=== PATIENT | male | born 1990 | race Caucasian/White ===

== ENCOUNTER 2023-09-01 20:26 | Inpatient (IN) | payer OTHER, SELFPAY ==
[2023-09-01 20:27] VITALS: BP 148/83; PULSE 88; RESP 16; TEMP 37; O2SAT 97; BMI 27.2
[2023-09-01 21:15] LABS: Basophils % 0.3 %; Eosinophils # 0.1 10^3/uL (0.0-0.8); Eosinophils % 0.8 %; Hematocrit 44.1 % (37-53); Lymphocytes # 2.2 10^3/uL (0.8-4.8); Lymphocytes % 20.8 %; Mean Corpuscular HGB Conc 33.6 g/dL (30-55); Mean Corpuscular Volume 86.3 fl (82-101); Mean Platelet Volume 9.9 fL (7.4-10.4); Monocytes # 0.6 10^3/uL (0.2-0.9); Monocytes % 5.4 %; Neutrophils # 7.74 10^3/uL (1.8-7.7); Neutrophils % 72.2 %; Nucleated Red Blood Cells % 0 %; Platelet Count 223 10^3/cmm (157-399); Red Blood Count 5.11 10^6/uL (3.85-5.65); Red Cell Distribution Width 12.3 % (12.1-15.1); White Blood Count 10.72 10^3/uL (3.29-11.43)
[2023-09-01 21:19] VITALS: RESP 14
[2023-09-01 21:34] LABS: Add Urine Microscopic? YES
[2023-09-01 21:36] LABS: Amorphous Sediment Urine 1+ /hpf; Bacteria Urine 2+ /hpf; Bilirubin Urine Neg (Negative); Blood Urine Neg (Negative); Glucose Urine UA Norm (Normal); Ketones Urine Negative (Negative); Leukocyte Esterase Urine Trace (Negative); Mucus Urine TRACE /hpf; Nitrate Urine Negative (Negative); Protein Urine Neg (Negative); RBC Urine 0-4 /hpf (0-2); Squamous Epithelial Cell Urine 0-4 /hpf (0-5); Urine Appearance Hazy (CLEAR); Urine Color Yellow (Yellow); Urobilinogen Urine 1 mg/dL (Negative); WBC Urine 0-4 /hpf (0-5); pH Urine 7 (5-7)
[2023-09-01 21:37] LABS: Coarse Granular Casts Urine 0-4 /lpf
[2023-09-01 21:38] LABS: Alanine Aminotransferase 19 U/L (0-41); Albumin Level 3.9 g/dL (3.5-5.2); Alkaline Phosphatase 129 U/L (40-130); Anion Gap 12.7 (5-19); Aspartate Amino Transferase 19 U/L (0-40); Blood Urea Nitrogen 5 mg/dL (6-20); Calcium 8.6 mg/dL (8.5-10.5); Carbon Dioxide 30 mmol/L (22-29); Chloride 104 mmol/L (98-107); Creatinine Clr Calc Pharmacy 149.1025; Globulin 2.6 g/dL (1.3-4.6); Glomerular Filtration Rate 131.5 mL/min (90-130); Glucose 121 mg/dL (65-115); Osmolality Calculated 295 mOsm/kg (285-295); Potassium 3.7 mmol/L (3.5-5.1); Sodium 143 mmol/L (136-145); Total Bilirubin 0.3 mg/dL (0.15-1.2); Total Protein 6.5 g/dL (6.6-8.7)
[2023-09-01 21:39] LABS: Acetaminophen < 5.0 ug/mL (10-30); Alcohol Level < 10 mg/dL (0-10)
[2023-09-01 21:44] LABS: Amphetamines Screen Urine Negative (Negative); Barbiturates Screen Urine Negative (Negative); Benzodiazepines Screen Urine Negative (Negative); Cocaine Screen Urine Negative (Negative); Opiate Screen Urine Negative (Negative); PCP Screen Urine Negative (Negative); THC Screen Urine Positive (Negative)
--- NOTE | 2023-09-01 22:33 | ED.C_ITS ---
HPI - Psych 2 General: Chief Complaint: Psychiatric Symptoms Stated Complaint: MHE Time Seen by Provider: 09/01/23 21:31 Source: patient History of Present Illness: 33-year-old male brought in by EMS from [facility]. Evidently he was found by police. He was making strange statements about God. He evidently told the deputy that he was the sign of Drew . He seems somewhat paranoid, so EMS was asked to bring the patient to the hospital. The patient asks me if he can speak with the remote inpatient coder at some point and to talk to a doctor. He also reports to me that he was recently released from an outside facility, [facility] in [place], less than a week ago. He was sent home on psychiatric medication, which she reports he is taking appropriately. He denies any other substance use or abuse. He denies any medical problems. MD complaint: altered mental status and other Review of Systems 2 Const: Denies: fever(s) or chills Card: Denies: chest pain Resp: Denies: dyspnea GI: Denies: abdominal pain or vomiting Neuro: Denies: headache(s) Physical Exam 2 Const: COMMON NORMALS: no acute distress GENERAL APPEARANCE: cooperative; not ill appearing and not frail appearing HENMT: COMMON NORMALS: normocephalic, atraumatic and Normal external nose present HEAD & SCALP: normocephalic and atraumatic FACE & SINUS: normal facial exam and face symmetric NOSE: Normal external nose present Eye: COMMON NORMALS: Equal, round and reactive pupils present and EOMs intact bilaterally PUPIL: Yes Equal, round and reactive pupils present Neck/C-Spine: GENERAL: Yes trachea midline Chest: CHEST: Yes Symmetrical chest wall rise Resp: COMMON NORMALS: normal respiratory effort, No retractions, No use of accessory muscles and clear to auscultation bilaterally AUSCULTATION: clear to auscultation bilaterally Cardio: COMMON NORMALS: regular rate and regular rhythm RATE: regular rate RHYTHM: regular rhythm GI: COMMON NORMALS: Normal to inspection, nondistended, normoactive bowel sounds present Extremity: COMMON NORMALS: no pedal edema Neuro: MITRA COMA SCALE: document GCS findings Mitra coma scale eye opening: Spontaneous Mitra coma scale verbal response: Orientated Mitra coma scale motor response: Obey commands [place] coma scale total score: 15 S ENSORY EXAM: Yes extremities (intact) Psych: COMMON NORMALS: speech normal SPEECH: Yes normal speech Skin: COMMON NORMALS: no rashes or lesions noted GENERAL SKIN EXAM: no rashes or lesions noted Course 2 Vital Signs: Vital signs: Vital Signs Temperature 98.6 F 09/01/23 20:27 Pulse Rate 88 09/01/23 20:27 Respiratory Rate 14 09/01/23 21:19 Blood Pressure 148/83 09/01/23 20:27 Pulse Oximetry 97 09/01/23 20:27 Oxygen Delivery Me thod Room Air 09/01/23 20:27 MDM - Psych Medical Decision Making This patient reports dwelling on thoughts about God. He reported to a deputy that he was the son of Drew. He maintains that he does not currently wish to hurt anyone including himself. Medically, he is stable. I spoke with psychiatry about the patient. Currently, the patient is willing to stay. We have no affidavits from EMS, or from law enforcement. We asked law enforcement to come to the hospital to write an affidavit for this patient, but they have refused at this time. The patient will be admitted to psychiatry for acute psychosis. Other than marijuana, there does not seem to be any coingestions. Lab Data 09/01/23 21:00 09/01/23 21:00 Laboratory Results WBC 10.72 10^3/uL (3.29-11.43) 09/01/23 21:00 RBC 5.11 10^6/uL (3.85-5.65) 09/01/23 21:00 Hgb 14.80 g/dL (11.27-16.99) 09/01/23 21:00 Hct 44.1 % (37-53) 09/01/23 21:00 MCV 86.3 fl (82-101) 09/01/23 21:00 MCH 29.0 pg (27-33) 09/01/23 21:00 MCHC 33.6 g/dL (30-55) 09/01/23 21:00 RDW 12.3 % (12.1-15.1) 09/01/23 21:00 Plt Count 223 10^3/cmm (157-399) 09/01/23 21:00 MPV 9.9 fL (7.4-10.4) 09/01/23 21:00 Neut % (Auto) 72.2 % 09/01/23 21:00 Lymph % (Auto) 20.8 % 09/01/23 21:00 Yell % (Auto) 5.4 % 09/01/23 21:00 Eos % (Auto) 0.8 % 09/01/23 21:00 Baso % (Auto) 0.3 % 09/01/23 21:00 Neut # (Auto) 7.74 10^3/uL (1.8-7.7) H 09/01/23 21:00 Lymph # (Auto) 2.2 10^3/uL (0.8-4.8) 09/01/23 21:00 Yell # (Auto) 0.6 10^3/uL (0.2-0.9) 09/01/23 21:00 Eos # (Auto) 0.1 10^3/uL (0.0-0.8) 09/01/23 21:00 Baso # (Auto) 0.0 10^3/uL (0.0-0.1) 09/01/23 21:00 Nucleated RBC % (auto) 0 % 09/01/23 21:00 Nucleated RBCs # 0.0 /100WBC 09/01/23 21:00 Sodium 143 mmol/L (136-145) 09/01/23 21:00 Potassium 3.7 mmol/L (3.5-5.1) 09/01/23 21:00 Chloride 104 mmol/L (98-107) 09/01/23 21:00 Carbon Dioxide 30 mmol/L (22-29) H 09/01/23 21:00 Anion Gap 12.7 (5-19) 09/01/23 21:00 BUN 5 mg/dL (6-20) L 09/01/23 21:00 Creatinine 0.7 mg/dL (0.7-1.2) 09/01/23 21:00 GFR Calculation 131.5 mL/min (90-130) H 09/01/23 21:00 Glucose 121 mg/dL (65-115) H 09/01/23 21:00 Calculated Osmolality 295 mOsm/kg (285-295) 09/01/23 21:00 Calcium 8.6 mg/dL (8.5-10.5) 09/01/23 21:00 Total Bilirubin 0.3 mg/dL (0.15-1.2) 09/01/23 21:00 AST 19 U/L (0-40) 09/01/23 21:00 ALT 19 U/L (0-41) 09/01/23 21:00 Alkaline Phosphatase 129 U/L (40-130) 09/01/23 21:00 Total Protein 6.5 g/dL (6.6-8.7) L 09/01/23 21:00 Albumin 3.9 g/dL (3.5-5.2) 09/01/23 21:00 Globulin 2.6 g/dL (1.3-4.6) 09/01/23 21:00 Urine Color Yellow (Yellow) 09/01/23 20:46 Urine Appearance Hazy (CLEAR) A 09/01/23 20:46 Urine pH 7 (5-7) 09/01/23 20:46 Ur Specific [place] 1.010 (1.005-1.030) 09/01/23 20:46 Urine Protein Neg (Negative) 09/01/23 20:46 Urine Glucose (UA) Norm (Normal) 09/01/23 20:46 Urine Ketones Negative (Negative) 09/01/23 20:46 Urine Blood Neg (Negative) 09/01/23 20:46 Urine Nitrate Negative (Negative) 09/01/23 20:46 Urine Bilirubin Neg (Negative) 09/01/23 20:46 Urine Urobilinogen 1 mg/dL (Negative) H 09/01/23 20:46 Ur Leukocyte Esterase Trace (Negative) H 09/01/23 20:46 Urine RBC 0-4 /hpf (0-2) H 09/01/23 20:46 Urine WBC 0-4 /hpf (0-5) H 09/01/23 20:46 Ur Squamous Epith Cells 0-4 /hpf (0-5) H 09/01/23 20:46 Amorphous Sediment 1+ /hpf 09/01/23 20:46 Urine Bacteria 2+ /hpf (NONE) H 09/01/23 20:46 Coarse Granular Casts 0-4 /lpf H 09/01/23 20:46 Urine Mucus Trace /hpf 09/01/23 20:46 Salicylates 1.0 mg/dL (3-10) L 09/01/23 21:00 Urine Opiates Screen Negative ng/mL (Negative) 09/01/23 20:46 Acetaminophen < 5.0 ug/mL (10-30) L 09/01/23 21:00 Ur Barbiturates Screen Negative ng/mL (Negative) 09/01/23 20:46 Ur Phencyclidine Scrn Negative ng/mL (Negative) 09/01/23 20:46 Ur Amphetamines Screen Negative ng/mL (Negative) 09/01/23 20:46 U Benzodiazepines Scrn Negative ng/mL (Negative) 09/01/23 20:46 Urine Cocaine Screen Negative ng/mL (Negative) 09/01/23 20:46 U Marijuana (THC) Screen Positive ng/mL (Negative) H 09/01/23 20:46 Ethyl Alcohol < 10 mg/dL (0-10) 09/01/23 21:00 No radiology studies performed this visit Discharge Plan Discharge Patient Disposition: Admitted As Inpatient Clinical Impression: Acute psychosis Condition: Stable Coding Level of Care Code ED Plastics Patternmaker for Alex Herrera
--- NOTE | 2023-09-01 23:02 | PC.NURSE ---
This nurse spoke with Deputy Hebert at [facility] via phone and he stated that they have not confirmed that it was blood on the hatchet at this time as they don't have access to the inside of the vehicle. Anup also said that pt told him that he was the son of magdalena.
--- NOTE | 2023-09-02 00:02 | PC.NURSE ---
This nurse spoke with Deputy Hebert via phone, Anup said that it was not blood on the hatchet.
--- NOTE | 2023-09-02 00:15 | PC.NURSE ---
Spoke with Cassandar @ [facility] and was informed that they do have bed avail but pt will need to be voluntary.
[2023-09-02 01:32] LABS: SARS Covid-2 Antigen negative (Negative)
[2023-09-02] MEDS: nicotine 21 mg Patch 1 PATCH TRANSDERMA (03:01)
--- NOTE | 2023-09-02 03:10 | PC.NURSE ---
Jacob Heller RN given report on [facility] . # [phone]
[2023-09-02] MEDS: BuSPIRONE 10 mg Tablet PO (04:52)
[2023-09-02 08:05] VITALS: BP 129/86; PULSE 78; RESP 17; TEMP 37; O2SAT 98
[2023-09-02 08:16] VITALS: BP 152/95; PULSE 81; RESP 17; TEMP 36.7; O2SAT 100
[2023-09-02] MEDS: nicotine 4 mg lozenge MUCOUS MEM ×3 (08:41→16:56)
--- NOTE | 2023-09-02 09:19 | PC.NURSE ---
96 hr rights reviewed with patient with assistance of [employer] security @[id number]. Patient verbalized understanding to the 96 hr hold. Only requests made by pt to HS was for a breakfast tray, and to speak with a leasing specialist. Patient cooperative and all education reviewed. No questions at this time to HS. Breakfast tray ordered by ER staff. HS attempted to call Adolescent [facility] Specialist cyber defense incident responder, and left a message stating that a patient was requesting to speak with him. Patient copy left @bedside with pt.
[2023-09-02 14:00] VITALS: BP 147/87; PULSE 87; RESP 17; TEMP 36.9; O2SAT 98
[2023-09-02] MEDS: trazodone 50 mg Tablet PO (20:23)
[2023-09-02] MEDS: OLANZapine 5 mg ODT PO (20:23)
[2023-09-02 20:47] VITALS: BP 147/85; PULSE 80; RESP 18; TEMP 36.6; O2SAT 98
--- NOTE | 2023-09-02 21:56 | PC.NURSE ---
PT REQUESTING HIS NIGHT TIME MEDICATIONS.PT STATES HE IS ANXIOUS DUE TO THINKING HE WILL NOT GET HIS MEDICATIONS. PT WAS ASSURED THAT THIS RN WILL GIVE HIM MEDICATIONS. PT DENIES SI/HI AND AVH AT THIS TIME.RATES ANXIETY 1/10 AND DEPRESSIION 0/10. DENIES PAIN. PT WAS GIVEN ZYDIS 5 MG ORDERED FOR ANXIETY AND PT STATES I TAKE THAT AT NIGHT. PT WAS ALSO GIVEN TRAZODONE 50 MG FOR SLEEP. PT HAS NO BEEN OBSERRVED HAVING DELUSIONS OR HALLUCINATIONS AND HAS BEEN VERY NICE AND RESPECTFUL TO HIS PEERS AND THE STAFF. ALL QUESTIONS ANSWERED AND SUPPORT WAS VOICED.
[2023-09-03] MEDS: nicotine 4 mg lozenge MUCOUS MEM ×6 (04:50→20:04)
--- NOTE | 2023-09-03 05:34 | PC.NURSE ---
PT UP PACING HALLS, INSISTS HE BE GIVEN HIS BUSPAR 10 MG NOW AND STATES NO ONE GAVE ME MY MEDICATIONS YESTERDAY. I WAS SUPPOSE TO SEE A PSYCHIATRIST AND THAT HASN'T HAPPENED EITHER. PT IS UPSET AND DEMANDS THIS RN CONTACT THE DR. NOW PLEASE SO I CAN TAKE MY BUSPAR AND LET HIM KNOW I WOULD LIKE TO SEE HIM FIRST THING THIS MORNING. PT ASSURED THAT RN WOULD CONTACT DR. DR. CLARKE NOTIFIED OF PT REQUEST, NEW ORDERS RECEIVED TO START HOME MEDICATION: BUSPAR 10 MG PO BID WITH FIRST DOSE AT 0600 AND SECOND DOSE AT 2100. PT EDUCATED ON NEW ORDERS AND STATES HE WANTS TO MAKE SURE MY OTHER MEDICATIONS ARE RESTARTED TOO. PT EDUCATED THAT ONCE HE SEES THE DR. AND TALKS ABOUT DIFFERENT MEDICATIONS OPTIONS, PT AND DR CAN DECIDE THEN WHAT WILL BE THE BEST COURSE OF ACTION AND IF PTS CURRENT MEDICATIONS HAVE NOT BEEN WORKING THEN MAYBE TRYING SOMETHING DIFFERENT WOULD BE BENEFICIAL. PT HAPPIER BUT STILL APPEARS FRUSTRATED. ALL QUESTIONS ANSWERED AND SUPPORT VOICED.
[2023-09-03 06:00] VITALS: BP 132/81; PULSE 98; RESP 18; TEMP 36.9; O2SAT 96
[2023-09-03] MEDS: BuSPIRONE 10 mg Tablet PO ×2 (06:07→20:03)
--- NOTE | 2023-09-03 06:46 | PC.NURSE ---
PT RECEIVED PRN MEDICATIONS THIS SHIFT FOR SLEEP AND ANXIETY. PT RECEIVED ZYDIS AND TRAZODONE. MEDICATIONS DEEMED EFFECTIVE. PT HAD NO OTHER COMPLAINTS OF ANXIETY AND WAS ABLE TO REST. PT SLEPT APPROXIMATELY 7-8 HOURS THIS SHIFT. PT DID HAVE SOME ANXIETY OVER MEDICATIONS BUT DID NOT REQUIRE PRN MEDICATIONS. PT IS UP IN DAY ROOM SPEAKING TO PEERS. NO DISTRESS NOTED.
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
[2023-09-03] MEDS: paliperidone ER 6 mg Tablet PO (09:22)
[2023-09-03 14:00] VITALS: BP 137/80; PULSE 81; RESP 17; TEMP 36.9; O2SAT 98
[2023-09-03 20:08] VITALS: RESP 16
[2023-09-03] MEDS: trazodone 50 mg Tablet PO (21:33)
[2023-09-04] MEDS: BuSPIRONE 10 mg Tablet PO ×2 (05:55→19:49)
[2023-09-04] MEDS: nicotine 4 mg lozenge MUCOUS MEM ×6 (05:55→19:49)
[2023-09-04 06:00] VITALS: BP 135/85; PULSE 97; RESP 18; TEMP 36.9; O2SAT 96
--- NOTE | 2023-09-04 07:35 | PC.NURSE ---
During morning assessment, patient stated that he is here because of his jew beliefs. Patient stated that, in his past, he didn't live by his beliefs, but now he is living by his beliefs. Patient denies SI, HI, AVH, depression, and anxiety.
[2023-09-04] MEDS: paliperidone ER 6 mg Tablet PO (08:22)
--- NOTE | 2023-09-04 11:33 | P.NPUPN_ITS ---
Subjective NPU 2 Subjective: Patient presented today reporting that he has had some significant decrease in his anxiety. He reports that his 1 positive response to the medication but denies any other changes. He continues to report that he is the son of God to talk about his mother and father thinking that he was wrong with that belief. He asserts that it is not a delusion. He reports that he like to leave as soon as possible. We discussed home likely being put on 21-day hold to extend his stay to some degree as we identify whether this hyperreligious thinking might resolve. He denied any side effects of the medication. Mental Status Exam 2 MSE Comments: This is a a well-nourished well-developed white male in hospital scrubs with appropriate hygiene and eye contact. No abnormal involuntary motor movements except for mild psychomotor retardation. Cooperative with exam in mild distress. Speech was mostly normal rate and volume. Mood described as all right; affect was restricted in range. Thought process: linear and logical. Thought content: Patient denies suicidal ideation, self-harm, paranoia or hallucinations. He did not appear to be responding to internal stimuli. However he is religiously preoccupied with clearly christianity delusions and reports hearing directly from God. Attention and concentration appeared intact and memory seemed mostly reliable, but none were formally tested. He is alert and oriented x 3. Insight, judgment and impulse control are impaired. Vitals/I&O/Wt Last Vital Signs Temp 98.5 F 09/04/23 06:00 Pulse 97 09/04/23 06:00 Resp 18 09/04/23 06:00 BP 135/85 09/04/23 06:00 Pulse Ox 96 09/04/23 06:00 O2 Del Method Room Air 09/02/23 20:47 Data NPU 09/01/23 21:00 09/01/23 21:00 A&P Assessment and plan (1) Acute psychosis: Plan This is a 33-year-old white male who presents reporting that he is the son of God and the second coming. He reports having direct communication with God and that this is real. He has a long history of addiction most recently including alcohol and methamphetamines [facility] He reported being open to medication changes. Patient has strong christianity beliefs that are causing him distress. He has a history of substance abuse but has been clean for several months. 1. Continue current medication. Except we will discontinue olanzapine ultimately. Start Invega 6 mg p.o. daily. 2. Continue every 15 minute checks for safety. 3. Encourage individual, group and milieu therapy. 4. Need collateral information from parents to identify the beginning of this hyperreligious delusions in his life. Involuntary Hold Information 2 96 Hour Hold: 96 Hour Involuntary Admission: Yes 96 Hour Hold Ending Date: 09/07/23 96 Hour Hold Ending Time: 00:01 Attestations NPU 2 Medical Necessity Statement*: Inpatient hospitalization is medically necessary and the clinically appropriate intervention at this time. We will monitor/initiate medications and make changes as indicated. Patient will be in the hospital for over 2 midnights. Likely length of stay 7-10 days. Coding Level of Care Code Acute Code for Chg Fwd Diagnoses Acute psychosis F23
[2023-09-04 14:00] VITALS: BP 141/90; PULSE 108; RESP 20; TEMP 37; O2SAT 96
[2023-09-04] MEDS: trazodone 50 mg Tablet PO (19:49)
[2023-09-04 20:44] VITALS: BP 128/76; PULSE 81; RESP 17; TEMP 36.6; O2SAT 98
[2023-09-05] MEDS: BuSPIRONE 10 mg Tablet PO ×2 (05:25→20:25)
[2023-09-05] MEDS: nicotine 4 mg lozenge MUCOUS MEM ×5 (05:25→18:36)
[2023-09-05 06:00] VITALS: BP 143/84; PULSE 91; RESP 18; O2SAT 96
--- NOTE | 2023-09-05 06:40 | P.NPUPN_ITS ---
Subjective NPU 2 Subjective: Patient presented today reporting that he is doing okay. We discussed the 21- day hold process. 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 He reported that he plans to go to the hearing and argue his desire to discharge as he feels there is no mental health issues here. He reiterated that he knows that he is second counseling and the actual son of God with all the pelaez, healing and otherwise Tip Russell has. He denies any side effects to the medication. We discussed that there would be a new doctor tomorrow. Mental Status Exam 2 MSE Comments: This is a a well-nourished well-developed white male in hospital scrubs with appropriate hygiene and eye contact. No abnormal involuntary motor movements except for mild psychomotor retardation. Cooperative with exam in mild distress. Speech was mostly normal rate and volume. Mood described as all right; affect was restricted in range. Thought process: linear and logical. Thought content: Patient denies suicidal ideation, self-harm, paranoia or hallucinations. He did not appear to be responding to internal stimuli. However he is religiously preoccupied with clearly yarsani delusions and reports hearing directly from God. Attention and concentration appeared intact and memory seemed mostly reliable, but none were formally tested. He is alert and oriented x 3. Insight, judgment and impulse control are impaired. Vitals/I&O/Wt Last Vital Signs Temp 97.9 F 09/04/23 20:44 Pulse 91 09/05/23 06:00 Resp 18 09/05/23 06:00 BP 143/84 09/05/23 06:00 Pulse Ox 96 09/05/23 06:00 O2 Del Method Room Air 09/05/23 06:00 Data NPU 09/01/23 21:00 09/01/23 21:00 A&P Assessment and plan (1) Acute psychosis: Plan This is a 33-year-old white male who presents reporting that he is the son of God and the second coming. He reports having direct communication with God and that this is real. He has a long history of addiction most recently including alcohol and methamphetamines [facility] He reported being open to medication changes. Patient has strong yarsani beliefs that are causing him distress. He has a history of substance abuse but has been clean for several months. 1. Continue current medication. Except we will discontinue olanzapine ultimately. Started Invega 6 mg p.o. daily. 2. Continue every 15 minute checks for safety. 3. Encourage individual, group and milieu therapy. 4. Need collateral information from parents to identify the beginning of this hyperreligious delusions in his life. 5. Filed for 21-day hold and the hearing will be today at 2 PM. Involuntary Hold Information 2 96 Hour Hold: 96 Hour Involuntary Admission: Yes 96 Hour Hold Ending Date: 09/07/23 96 Hour Hold Ending Time: 00:01 Attestations NPU 2 Medical Necessity Statement*: Inpatient hospitalization is medically necessary and the clinically appropriate intervention at this time. We will monitor/initiate medications and make changes as indicated. Likely length of stay 7-10 days. Coding Level of Care Code Acute Code for Chg Fwd Diagnoses Acute psychosis F23
[2023-09-05] MEDS: nicotine 21 mg Patch 1 PATCH TRANSDERMA (07:22)
[2023-09-05] MEDS: paliperidone ER 6 mg Tablet PO (08:22)
[2023-09-05 12:56] VITALS: BP 138/86; PULSE 104; RESP 16; TEMP 37; O2SAT 95
--- NOTE | 2023-09-05 14:01 | PC.NURSE ---
Left floor for [address] at 1400
--- NOTE | 2023-09-05 15:31 | PC.NURSE ---
Patient arrived back to unit from court at 1530. Patient calm.
[2023-09-05] MEDS: ibuprofen 600 mg Tablet PO (15:58)
[2023-09-05] MEDS: trazodone 50 mg Tablet PO (20:25)
[2023-09-05 20:46] VITALS: BP 120/66; PULSE 98; RESP 18; TEMP 36.6; O2SAT 96
[2023-09-06] MEDS: BuSPIRONE 10 mg Tablet PO (05:23)
[2023-09-06 06:00] VITALS: BP 137/90; PULSE 83; RESP 16; TEMP 36.6; O2SAT 98
[2023-09-06] MEDS: paliperidone ER 6 mg Tablet PO (07:12)
[2023-09-06] MEDS: nicotine 4 mg lozenge MUCOUS MEM ×6 (07:12→19:39)
[2023-09-06 13:52] VITALS: BP 149/91; PULSE 110; RESP 15; TEMP 36.6; O2SAT 100
--- NOTE | 2023-09-06 17:45 | P.NPUPN_ITS ---
Subjective NPU 2 Subjective: Patient is a 33-year-old male with a history of likely bipolar disorder admitted with acute psychosis and jenny. The patient had acknowledged that he had been initially thinking that he may have thought that he was the son of God but stated that he was not feeling this way any longer. He had reported no side effects from the medication. He had reported having periods of decreased need for sleep and racing thoughts before in the past. He had requested that he be given Invega intramuscular as he had stated no side effects from his oral Invega at this time. He had not endorsed having any racing thoughts. Staff notes the patient had been less grandiose and more able to be redirected. He was able to attend groups. He denied any side effects from his medications at this time. Mental Status Exam 2 MSE Comments: This is a a well-nourished well-developed white male in hospital scrubs with appropriate hygiene and eye contact. No abnormal involuntary motor movements except for mild psychomotor retardation. Cooperative with exam in mild distress. Speech was mostly normal rate and volume. Mood described as better; affect was restricted in range. Thought process: linear and logical. Thought content: Patient denies suicidal ideation, self-harm, paranoia or hallucinations. He did not appear to be responding to internal stimuli. No overt delusions noted. He had acknowledged having belief of being a God before, but denied it currently. There was continued presence of grandiosity. Attention and concentration appeared intact and memory seemed mostly reliable, but none were formally tested. He is alert and oriented x 3. Insight may be improving, Judgment and impulse control are impaired. Vitals/I&O/Wt Last Vital Signs Temp 97.9 F 09/06/23 13:52 Pulse 110 H 09/06/23 13:52 Resp 15 09/06/23 13:52 BP 149/91 09/06/23 13:52 Pulse Ox 100 09/06/23 13:52 O2 Del Method Room Air 09/06/23 06:00 Data NPU 09/01/23 21:00 09/01/23 21:00 A&P Assessment and plan (1) Acute psychosis: Plan This is a 33-year-old white male who presents reporting that he is the son of God and the second coming. He reports having direct communication with God and that this is real. He has a long history of addiction most recently including alcohol and methamphetamines [facility] He reported being open to medication changes. Patient has strong orthodox beliefs that are causing him distress. He has a history of substance abuse but has been clean for several months. 1. Continue current medication. Except we will discontinue olanzapine ultimately. Continue Invega 6 mg p.o. daily with plan to begin invega IM 234mg tommorow. 2. Continue every 15 minute checks for safety. 3. Encourage individual, group and milieu therapy. 4. Need collateral information from parents to identify the beginning of this hyperreligious delusions in his life. 5. Filed for 21-day hold and the hearing will be today at 2 PM. Involuntary Hold Information 2 96 Hour Hold: 96 Hour Involuntary Admission: Yes 96 Hour Hold Ending Date: 09/07/23 96 Hour Hold Ending Time: 00:01 Attestations NPU 2 Medical Necessity Statement*: Inpatient hospitalization is medically necessary and the clinically appropriate intervention at this time. We will monitor/initiate medications and make changes as indicated. Likely length of stay 7-10 days. Coding Level of Care Code Acute Code for Chg Fwd Diagnoses Acute psychosis F23
[2023-09-06] MEDS: trazodone 50 mg Tablet PO (20:20)
[2023-09-06 20:22] VITALS: BP 126/69; PULSE 82; RESP 16; TEMP 36.8; O2SAT 98
[2023-09-07 06:00] VITALS: BP 143/89; PULSE 97; RESP 20; TEMP 36.8; O2SAT 98
[2023-09-07] MEDS: nicotine 4 mg lozenge MUCOUS MEM ×5 (06:21→17:55)
[2023-09-07] MEDS: paliperidone ER 6 mg Tablet PO (07:58)
[2023-09-07] MEDS: paliperidone palmitate 234 mg Syringe IM (12:13)
[2023-09-07 14:00] VITALS: BP 138/90; PULSE 95; RESP 13; TEMP 37.1; O2SAT 97
--- NOTE | 2023-09-07 15:20 | P.NPUPN_ITS ---
Subjective NPU 2 Subjective: Patient is a 33-year-old male with a history of likely bipolar disorder admitted with acute psychosis and jenny. The patient had tolerated his Invega IM this morning. He had minimized any thoughts of being a God. He had reported improved sleep. He had reported that he had not had any thoughts of harming his children. He reported no mood symptoms at this time. He had continued to attend groups but was mainly isolative on the milieu. He had reported a history of an unspecified mood disorder in his family. Mental Status Exam 2 MSE Comments: This is a a well-nourished well-developed white male in hospital scrubs with appropriate hygiene and eye contact. No abnormal involuntary motor movements except for mild psychomotor retardation. Cooperative with exam in mild distress. Speech was mostly normal rate and volume. Mood described as better; affect remained somewhat flat. Thought process: linear and logical. Thought content: Patient denies suicidal ideation, homicidal ideation , self-harm, paranoia or hallucinations. He did not appear to be responding to internal stimuli. No overt delusions noted. He had reported no thoughts of being a god. There was less overt grandiosity. Attention and concentration appeared intact and memory seemed mostly reliable, but none were formally tested. He is alert and oriented x 3. Insight may be improving, Judgment and impulse control are impaired. Vitals/I&O/Wt Last Vital Signs Temp 98.2 F 09/07/23 06:00 Pulse 97 09/07/23 06:00 Resp 20 H 09/07/23 06:00 BP 143/89 09/07/23 06:00 Pulse Ox 98 09/07/23 06:00 O2 Del Method Room Air 09/07/23 06:00 Data NPU 09/01/23 21:00 09/01/23 21:00 A&P Assessment and plan (1) Acute psychosis: Plan This is a 33-year-old white male who presents reporting that he is the son of God and the second coming. He reports having direct communication with God and that this is real. He has a long history of addiction most recently including alcohol and methamphetamines [facility] He reported being open to medication changes. Patient has strong nondenominational beliefs that are causing him distress. He has a history of substance abuse but has been clean for several months. 1. Continue current medication. Except we will discontinue olanzapine ultimately. Invega 234mg IM given today while continuing oral invega 6mg daily. 2. Continue every 15 minute checks for safety. 3. Encourage individual, group and milieu therapy. 4. Need collateral information from parents to identify the beginning of this hyperreligious delusions in his life. Involuntary Hold Information 2 96 Hour Hold: 96 Hour Involuntary Admission: Yes 96 Hour Hold Ending Date: 09/07/23 96 Hour Hold Ending Time: 00:01 Attestations NPU 2 Medical Necessity Statement*: Inpatient hospitalization is medically necessary and the clinically appropriate intervention at this time. We will monitor/initiate medications and make changes as indicated. Likely length of stay 7-10 days. Coding Level of Care Code Acute Code for Chg Fwd Diagnoses Acute psychosis F23
[2023-09-07 20:34] VITALS: BP 114/62; PULSE 69; RESP 18; TEMP 36.7; O2SAT 97
[2023-09-08 06:00] VITALS: BP 134/84; PULSE 77; RESP 17; TEMP 36.7; O2SAT 97
[2023-09-08] MEDS: nicotine 4 mg lozenge MUCOUS MEM ×5 (08:13→18:01)
[2023-09-08] MEDS: paliperidone ER 6 mg Tablet PO (08:13)
[2023-09-08 14:00] VITALS: BP 132/92; PULSE 106; RESP 16; TEMP 36.6; O2SAT 97
--- NOTE | 2023-09-08 14:20 | P.NPUPN_ITS ---
Subjective NPU 2 Subjective: Patient is a 33-year-old male with a history of likely bipolar disorder admitted with acute psychosis and jenny. The patient had revealed that he had been diagnosed as having a traumatic brain injury and was 100% service-connected for this as he remained on disability for the past 7 years. He had reported feeling much better and had not endorsed having any beliefs of being a God or being the son of God. He had endorsed that he had not been sleeping and that his thoughts were moving fast but states that he has been feeling much better since starting the Invega. He had reported no side effects from the intramuscular Invega given to him earlier yesterday. He had been compliant and cooperative on the milieu and reported that he was sleeping much better. Mental Status Exam 2 MSE Comments: This is a a well-nourished well-developed white male in hospital scrubs with appropriate hygiene and eye contact. No abnormal involuntary motor movements except for mild psychomotor retardation. He was friendly and cooperative with exam in mild distress. Speech was mostly normal rate, rhythm and volume. Mood described as better; affect remained somewhat flat. Thought process: linear and logical. Thought content: Patient denies suicidal ideation, homicidal ideation , self-harm, paranoia or hallucinations. He did not appear to be responding to internal stimuli. No overt delusions noted. He had reported no thoughts of being a god. There was less overt grandiosity. Attention and concentration appeared intact and memory seemed mostly reliable, but none were formally tested. He is alert and oriented x 3. Insight may be improving, Judgment and impulse control are impaired. Vitals/I&O/Wt Last Vital Signs Temp 98.0 F 09/08/23 06:00 Pulse 77 09/08/23 06:00 Resp 17 09/08/23 06:00 BP 134/84 09/08/23 06:00 Pulse Ox 97 09/08/23 06:00 O2 Del Method Room Air 09/07/23 06:00 Data NPU 09/01/23 21:00 09/01/23 21:00 A&P Assessment and plan (1) Acute psychosis: Plan This is a 33-year-old white male who presents reporting that he is the son of God and the second coming. He reports having direct communication with God and that this is real. He has a long history of addiction most recently including alcohol and methamphetamines [facility] He reported being open to medication changes. Patient has strong mandaen beliefs that are causing him distress. He has a history of substance abuse but has been clean for several months. 1. Continue current medication. Except we will discontinue olanzapine ultimately. Invega 234mg IM given on 09/07/23 while continuing oral invega 6mg daily. Plan for next Invega IM on 09/12/23 2. Continue every 15 minute checks for safety. 3. Encourage individual, group and milieu therapy. 4. Referral for TBI specialist through [place] [facility]. Involuntary Hold Information 2 96 Hour Hold: 96 Hour Involuntary Admission: Yes 96 Hour Hold Ending Date: 09/07/23 96 Hour Hold Ending Time: 00:01 Attestations NPU 2 Medical Necessity Statement*: Inpatient hospitalization is medically necessary and the clinically appropriate intervention at this time. We will monitor/initiate medications and make changes as indicated. Likely length of stay 3-5 days. Coding Level of Care Code Acute Code for Chg Fwd Diagnoses Acute psychosis F23
[2023-09-08 20:16] VITALS: BP 120/70; PULSE 84; RESP 16; TEMP 36.8; O2SAT 97
[2023-09-09 05:49] VITALS: BP 134/84; PULSE 97; RESP 18; TEMP 36.6; O2SAT 97
[2023-09-09] MEDS: nicotine 4 mg lozenge MUCOUS MEM ×7 (07:25→20:30)
[2023-09-09] MEDS: paliperidone ER 6 mg Tablet PO (07:25)
[2023-09-09 14:00] VITALS: BP 104/52; PULSE 104; RESP 16; TEMP 36.6; O2SAT 97
--- NOTE | 2023-09-09 16:27 | P.NPUPN_ITS ---
Subjective NPU 2 Subjective: Patient is a 33-year-old male with a history of likely bipolar disorder admitted with acute psychosis and jenny. Patient reported good sleep. He had reported no thoughts about being a God or feeling as if he was the reincarnation of God. He reported feeling much better on these medications. He reported significant details regarding his traumatic brain injury and stated that he would be interested in follow-up with a traumatic brain injury specialist that he had seen in [place] through the [facility]. He was pleasant and cooperative on the milieu with no problems reported. Mental Status Exam 2 MSE Comments: This is a a well-nourished well-developed white male in hospital scrubs with appropriate hygiene and eye contact. No abnormal involuntary motor movements except for mild psychomotor retardation. He was friendly and cooperative with exam in mild distress. Speech was mostly normal rate, rhythm and volume. Mood described as better; affect remained restricted. Thought process: linear and logical. Thought content: Patient denies suicidal ideation, homicidal ideation , self-harm, paranoia or hallucinations. He did not appear to be responding to internal stimuli. No overt delusions noted and minimal grandiosity endorsed. Attention and concentration appeared intact and memory seemed mostly reliable, but none were formally tested. He is alert and oriented x 3. Insight may be improving, Judgment and impulse control appears to be improving. Vitals/I&O/Wt Last Vital Signs Temp 98 F 09/09/23 14:00 Pulse 104 H 09/09/23 14:00 Resp 16 09/09/23 14:00 BP 104/52 09/09/23 14:00 Pulse Ox 97 09/09/23 14:00 O2 Del Method Room Air 09/09/23 14:00 Weight last 48 hrs Weight 80.649 kg Data NPU 09/01/23 21:00 09/01/23 21:00 A&P Assessment and plan (1) Acute psychosis: Plan This is a 33-year-old white male who presents reporting that he is the son of God and the second coming. He reports having direct communication with God and that this is real. He has a long history of addiction most recently including alcohol and methamphetamines [facility] Patient has strong zoroastrian beliefs that are causing him distress. He has a history of substance abuse but has been clean for several months. 1. Invega 234mg IM given on 09/07/23 while continuing oral invega 6mg daily. Plan for next Invega IM on 09/12/23. Patient showing signficiant improvement. 2. Continue every 15 minute checks for safety. 3. Encourage individual, group and milieu therapy. 4. Referral for TBI specialist through [place] [facility]. Involuntary Hold Information 2 96 Hour Hold: 96 Hour Involuntary Admission: Yes 96 Hour Hold Ending Date: 09/07/23 96 Hour Hold Ending Time: 00:01 Attestations NPU 2 Medical Necessity Statement*: Inpatient hospitalization is medically necessary and the clinically appropriate intervention at this time. We will monitor/initiate medications and make changes as indicated. The patient's likely length of stay is 3-5 days. Coding Level of Care Code Acute Code for Chg Fwd Diagnoses Acute psychosis F23
[2023-09-09 20:13] VITALS: BP 117/66; PULSE 89; RESP 17; TEMP 36.9; O2SAT 96
[2023-09-10 06:00] VITALS: BP 132/78; PULSE 88; RESP 18; TEMP 36.6; O2SAT 98
[2023-09-10] MEDS: nicotine 4 mg lozenge MUCOUS MEM ×5 (06:23→17:33)
[2023-09-10] MEDS: paliperidone ER 6 mg Tablet PO (08:26)
[2023-09-10 14:00] VITALS: BP 131/83; PULSE 91; RESP 17; TEMP 36.6; O2SAT 98
--- NOTE | 2023-09-10 16:33 | P.NPUPN_ITS ---
Subjective NPU 2 Subjective: Patient is a 33-year-old male with a history of likely bipolar disorder admitted with acute psychosis and jenny. Patient reported good sleep. Patient reported no side effects from his medication. He had expressed desire to return back to the traumatic brain injury center near [place] for further care in the future. Patient had reported having previously been on olanzapine to help with managing his behavior but stated that he had gone several months without the olanzapine. He had been compliant and continued to report having many things to do when he left here. He had reported having no thoughts of hurting himself or others. Mental Status Exam 2 MSE Comments: This is a a well-nourished well-developed white male in hospital scrubs with appropriate hygiene and eye contact. No abnormal involuntary motor movements except for mild psychomotor retardation. He was friendly and cooperative with exam in mild distress. Speech was mostly normal rate, rhythm and volume. Mood described as better; affect appeared brighter. Thought process: linear and logical. Thought content: Patient denies suicidal ideation, homicidal ideation , self-harm, paranoia or hallucinations. He did not appear to be responding to internal stimuli. No overt delusions noted and minimal grandiosity endorsed. Attention and concentration appeared intact and memory seemed mostly reliable, but none were formally tested. He is alert and oriented x 3. Insight was improving, Judgment was improving and impulse control appeared to be guarded. Vitals/I&O/Wt Last Vital Signs Temp 97.8 F 09/10/23 14:00 Pulse 91 09/10/23 14:00 Resp 17 09/10/23 14:00 BP 131/83 09/10/23 14:00 Pulse Ox 98 09/10/23 14:00 O2 Del Method Room Air 09/09/23 20:13 Weight last 48 hrs Weight 80.649 kg Data NPU 09/01/23 21:00 09/01/23 21:00 A&P Assessment and plan (1) Acute psychosis: Plan This is a 33-year-old white male who presents reporting that he is the son of God and the second coming. He reports having direct communication with God and that this is real. He has a long history of addiction most recently including alcohol and methamphetamines [facility] Patient has strong methodist beliefs that are causing him distress. He has a history of substance abuse but has been clean for several months. 1. Invega 234mg IM given on 09/07/23 while continuing oral invega 6mg daily. Plan for next Invega IM on 09/12/23. Patient showing continued improvement. 2. Continue every 15 minute checks for safety. 3. Encourage individual, group and milieu therapy. 4. Referral for TBI specialist through [place] [facility]. Involuntary Hold Information 2 96 Hour Hold: 96 Hour Involuntary Admission: Yes 96 Hour Hold Ending Date: 09/07/23 96 Hour Hold Ending Time: 00:01 Attestations NPU 2 Medical Necessity Statement*: Inpatient hospitalization is medically necessary and the clinically appropriate intervention at this time. We will monitor/initiate medications and make changes as indicated. The patient's likely length of stay is 3-5 days. Coding Level of Care Code Acute Code for Chg Fwd Diagnoses Acute psychosis F23
[2023-09-10 20:58] VITALS: BP 130/63; PULSE 69; RESP 15; TEMP 36.8; O2SAT 98
[2023-09-11 06:00] VITALS: BP 141/81; PULSE 77; RESP 18; TEMP 36.7; O2SAT 97
[2023-09-11] MEDS: nicotine 4 mg lozenge MUCOUS MEM ×3 (06:46→19:59)
[2023-09-11] MEDS: paliperidone ER 6 mg Tablet PO (08:27)
[2023-09-11] MEDS: nicotine 21 mg Patch 1 PATCH TRANSDERMA (11:09)
--- NOTE | 2023-09-11 13:34 | P.NPUPN_ITS ---
Subjective NPU 2 Subjective: Patient is a 33-year-old male with a history of likely bipolar disorder admitted with acute psychosis and jenny along with TBI. Patient had reported feeling better. He reported having no racing thoughts. He reported no side effects from his medication. He reported improved energy. He had not appeared grandiose and had stated that he had no thoughts of hurting himself or others. He had attended groups. He had reported adequate sleep. Patient had stated improved hope it remaining on this medication and avoiding any future episodes of jenny. Mental Status Exam 2 MSE Comments: This is a a well-nourished well-developed white male in hospital scrubs with appropriate hygiene and eye contact. No abnormal involuntary motor movements except for mild psychomotor retardation. He was friendly and cooperative with exam in no acute distress. Speech was mostly normal rate, rhythm and volume. Mood described as okay; affect appeared brighter. Thought process: linear, goal directed and logical. Thought content: Patient denies suicidal ideation, homicidal ideation , self-harm, paranoia or hallucinations. He did not appear to be responding to internal stimuli. No overt delusions noted and minimal grandiosity endorsed. Attention and concentration appeared intact and memory seemed mostly reliable, but none were formally tested. He is alert and oriented x 3. Insight was improving, Judgment was improving and impulse control appeared to be guarded. Vitals/I&O/Wt Last Vital Signs Temp 98.1 F 09/11/23 06:00 Pulse 77 09/11/23 06:00 Resp 18 09/11/23 06:00 BP 141/81 09/11/23 06:00 Pulse Ox 97 09/11/23 06:00 O2 Del Method Room Air 09/11/23 06:00 Data NPU 09/01/23 21:00 09/01/23 21:00 A&P Assessment and plan (1) Acute psychosis: Plan This is a 33-year-old white male who presents reporting that he is the son of God and the second coming. He reports having direct communication with God and that this is real. He has a long history of addiction most recently including alcohol and methamphetamines [facility] Patient has strong alevism beliefs that are causing him distress. He has a history of substance abuse but has been clean for several months. 1. Invega 234mg IM given on 09/07/23 while continuing oral invega 6mg daily. Plan for next Invega IM 156mg on 09/12/23. Patient showing continued improvement. 2. Continue every 15 minute checks for safety. 3. Encourage individual, group and milieu therapy. 4. Referral for TBI specialist through [place] [facility]. 5. Discharge home tommorow. Involuntary Hold Information 2 96 Hour Hold: 96 Hour Involuntary Admission: Yes 96 Hour Hold Ending Date: 09/07/23 96 Hour Hold Ending Time: 00:01 Attestations NPU 2 Medical Necessity Statement*: Inpatient hospitalization is medically necessary and the clinically appropriate intervention at this time. We will monitor/initiate medications and make changes as indicated. The patient's likely length of stay is 1-2 days. Coding Level of Care Code Acute Code for Chg Fwd Diagnoses Acute psychosis F23
[2023-09-11 13:58] VITALS: BP 121/82; PULSE 118; RESP 16; TEMP 36.6; O2SAT 97
[2023-09-11 19:58] VITALS: BP 126/80; PULSE 95; RESP 17; TEMP 36.9; O2SAT 97
[2023-09-11] MEDS: trazodone 50 mg Tablet PO (19:58)
[2023-09-12 06:00] VITALS: BP 144/87; PULSE 93; RESP 18; TEMP 36.5; O2SAT 99
[2023-09-12] MEDS: nicotine 4 mg lozenge MUCOUS MEM ×2 (06:01→08:32)
[2023-09-12] MEDS: paliperidone ER 6 mg Tablet 3 MG PO (08:32)
[2023-09-12] MEDS: nicotine 21 mg Patch 1 PATCH TRANSDERMA (09:57)
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
[2023-09-12 10:45] VITALS: BP 144/87; PULSE 93; RESP 18; TEMP 36.5; O2SAT 99
[2023-09-12] MEDS: paliperidone palmitate 156 mg Syringe IM (11:00)
[2023-09-12 13:04] VITALS: BP 123/85; PULSE 104; RESP 16; TEMP 37.1; O2SAT 97
== END 2023-09-12 18:24 | disposition home or self-care (01) | DRG 885 ==
LOC: ER 09-02 01:47 → NP 09-02 08:01
PROVIDERS: Emergency Medicine; Admitting Provider Psychiatry & Neurology Psychiatry; Emergency Provider Emergency Medicine; Visit Provider Psychiatry & Neurology Psychiatry
DX: F31.2 Bipolar disorder, current episode manic severe with psychotic features (principal); Z59.01 Sheltered homelessness; F41.9 Anxiety disorder, unspecified; F17.210 Nicotine dependence, cigarettes, uncomplicated; F12.10 Cannabis abuse, uncomplicated; F10.11 Alcohol abuse, in remission; F14.11 Cocaine abuse, in remission; F16.11 Hallucinogen abuse, in remission; Z11.52 Encounter for screening for COVID-19; Z87.820 Personal history of traumatic brain injury
CPT/HCPCS: 36415; 80053; 80306; 80307; 81001; 85025; 87426; 96372; 97150; 97165; 99285